=== PATIENT | female | born 1955 | race Caucasian/White ===

== ENCOUNTER 2022-05-26 17:58 | Inpatient (IN) | payer BC ==
[2022-05-26 18:57] VITALS: BMI 23.8
[2022-05-26] MEDS ORDERED: BENZOCAINE/MENTHOL (CHLORASEPTIC ) LOZENGE MM PRN (20:59)
[2022-05-26] MEDS ORDERED: ONDANSETRON *ODT* 4 MG TABLET SL PRN (20:59)
[2022-05-26] MEDS ORDERED: guaiFENesin 200 MG/10 ML 10 ML UNIT-DOSE CUPS PO PRN (20:59)
[2022-05-26] MEDS ORDERED: P-EPHED 60MG/TRIPROLIDI 2.5MG TABLET PO PRN (20:59)
[2022-05-26] MEDS ORDERED: MAGNESIUM HYDROX 2400MG/30ML ORAL SUSPENSION 30 ML CUP PO PRN (20:59)
[2022-05-26] MEDS ORDERED: DICYCLOMINE HCL 10 MG CAPSULE PO PRN (20:59)
[2022-05-26] MEDS ORDERED: MAG HYDROX/AL HYDROX/SIMETH 30 ML UNIT-DOSE CUP PO PRN (20:59)
[2022-05-26] MEDS ORDERED: LOPERAMIDE HCL 2 MG CAPSULE PO PRN (20:59)
[2022-05-26] MEDS ORDERED: POLYETHYLENE GLYCOL (HEALTHYLAX) 3350 17 GM PACKET PO PRN (20:59)
[2022-05-26] MEDS ORDERED: IBUPROFEN 400 MG TABLET (FP) PO PRN (20:59)
[2022-05-26] MEDS ORDERED: BISMUTH SUBSALICYLATE 524 MG/30 ML PO PRN (20:59)
[2022-05-26] MEDS ORDERED: diazePAM 5 MG TABLET PO PRN (21:01)
[2022-05-26] MEDS ORDERED: diazePAM 5 MG TABLET ONE (22:24)
[2022-05-26] MEDS ORDERED: amLODIPine BESYLATE 5 MG TABLET (FP) ONE (22:24)
[2022-05-26] MEDS: diazePAM 5 MG TABLET PO SCH (22:27)
[2022-05-26] MEDS: THIAMINE HCL 100 MG TABLET (FP) PO SCH (22:27)
[2022-05-26] MEDS: amLODIPine BESYLATE 10 MG TABLET (FP) PO SCH (22:27)
[2022-05-27] MEDS ORDERED: diazePAM 5 MG TABLET ONE ×2 (06:18→10:05)
[2022-05-27] MEDS: diazePAM 5 MG TABLET PO SCH ×4 (06:20→22:37)
[2022-05-27] MEDS ORDERED: amLODIPine BESYLATE 5 MG TABLET (FP) ONE (10:05)
[2022-05-27] MEDS ORDERED: PRENATAL VITAMINS W/ FOLIC ACID TABLET (FP) PO ONE (10:05)
[2022-05-27] MEDS: amLODIPine BESYLATE 10 MG TABLET (FP) PO SCH (10:27)
[2022-05-27] MEDS: PRENATAL VITAMINS W/ FOLIC ACID TABLET (FP) PO SCH (10:28)
[2022-05-27 10:56] LABS: HEMATOCRIT 35.2 % (32.4-45.2); HEMOGLOBIN 11.8 GM/dL (10.7-15.3); MCH 34.6 pg (25.7-33.7); MCHC 33.6 g/dl (32.0-36.0); MEAN CELL VOLUME 102.9 fl (80-96); MEAN PLT VOLUME 9.4 fl (7.5-11.1); PLATELET COUNT 145 10^3/uL (134-434); RBC 3.42 M/mm3 (3.60-5.2); RDW 15.7 % (11.6-15.6); WHITE BLOOD COUNT 5.6 K/mm3 (4.0-10.0)
[2022-05-27 11:07] LABS: CALCIUM 9.4 mg/dL (8.5-10.1)
[2022-05-27 11:08] LABS: ALBUMIN 3.4 g/dl (3.4-5.0); BLOOD UREA NITROGEN 6.7 mg/dL (7-18)
[2022-05-27 11:11] LABS: CREATININE 0.6 mg/dL (0.55-1.3)
[2022-05-27 11:12] LABS: BILIRUBIN,TOTAL 0.6 mg/dL (0.2-1); TOT PROT 6.9 g/dl (6.4-8.2)
[2022-05-27] MEDS: propRANOLol HCL 10 MG TABLET PO SCH ×2 (13:00→22:37)
[2022-05-27] MEDS ORDERED: VENLAFAXINE HCL 150 MG E.R. CAPSULE PO SCH (13:45)
[2022-05-27] MEDS: VENLAFAXINE HCL ER 150 MG, VENLAFAXINE HCL ER 75 MG PO SCH (14:40)
[2022-05-27] MEDS: THIAMINE HCL 100 MG TABLET (FP) PO SCH (22:37)
[2022-05-28] MEDS: diazePAM 5 MG TABLET PO SCH ×3 (05:21→22:34)
[2022-05-28] MEDS: VENLAFAXINE HCL ER 150 MG, VENLAFAXINE HCL ER 75 MG PO SCH (07:13)
[2022-05-28] MEDS: propRANOLol HCL 10 MG TABLET PO SCH ×2 (10:45→22:35)
[2022-05-28] MEDS: amLODIPine BESYLATE 10 MG TABLET (FP) PO SCH (10:45)
[2022-05-28] MEDS: PRENATAL VITAMINS W/ FOLIC ACID TABLET (FP) PO SCH (10:46)
[2022-05-28] MEDS: MELATONIN 5 MG TABLETS PO PRN (22:33)
[2022-05-28] MEDS: THIAMINE HCL 100 MG TABLET (FP) PO SCH (22:33)
[2022-05-29] MEDS: diazePAM 5 MG TABLET PO SCH ×2 (05:43→17:23)
[2022-05-29] MEDS: VENLAFAXINE HCL ER 150 MG, VENLAFAXINE HCL ER 75 MG PO SCH (07:22)
[2022-05-29] MEDS: amLODIPine BESYLATE 10 MG TABLET (FP) PO SCH (10:40)
[2022-05-29] MEDS: propRANOLol HCL 10 MG TABLET PO SCH ×2 (10:40→22:55)
[2022-05-29] MEDS: PRENATAL VITAMINS W/ FOLIC ACID TABLET (FP) PO SCH (10:40)
[2022-05-29] MEDS: IBUPROFEN 600 MG TABLET (FP) PO PRN (14:56)
[2022-05-29 17:15] VITALS: RESP 16
[2022-05-29] MEDS: THIAMINE HCL 100 MG TABLET (FP) PO SCH (22:54)
[2022-05-29] MEDS: MELATONIN 5 MG TABLETS PO PRN (22:54)
[2022-05-30] MEDS ORDERED: diazePAM 5 MG TABLET PO ONE (06:00)
[2022-05-30] MEDS: IBUPROFEN 600 MG TABLET (FP) PO PRN (06:04)
[2022-05-30] MEDS: VENLAFAXINE HCL ER 150 MG, VENLAFAXINE HCL ER 75 MG PO SCH (07:31)
[2022-05-30 10:07] VITALS: BP 124/60; PULSE 81; TEMP 97.9
[2022-05-30] MEDS: amLODIPine BESYLATE 10 MG TABLET (FP) PO SCH (10:36)
[2022-05-30] MEDS: propRANOLol HCL 10 MG TABLET PO SCH (10:36)
[2022-05-30] MEDS: PRENATAL VITAMINS W/ FOLIC ACID TABLET (FP) PO SCH (10:36)
== END 2022-05-30 12:12 | disposition home or self-care (01) | DRG 897 ==
LOC: YASAS 17:58 → Y6N 05-27 10:42
PROVIDERS: ADMIT Allergy & Immunology; ATTEND Surgery
PROC: HZ2ZZZZ Detoxification Services for Substance Abuse Treatment (ICD-10-PCS; principal; 2022-05-27)
DX: F10.230 Alcohol dependence with withdrawal, uncomplicated (principal); F10.282 Alcohol dependence with alcohol-induced sleep disorder; F10.280 Alcohol dependence with alcohol-induced anxiety disorder; F10.24 Alcohol dependence with alcohol-induced mood disorder; F32.A Depression, unspecified; F41.8 Other specified anxiety disorders; I10 Essential (primary) hypertension; M54.50 Low back pain, unspecified; G89.29 Other chronic pain; Z86.79 Personal history of other diseases of the circulatory system; Z87.891 Personal history of nicotine dependence; Z88.0 Allergy status to penicillin; Z91.018 Allergy to other foods
CPT/HCPCS: 36415; 80053; 81025; 85027; 86780; C9803-CS; U0003; U0005